=== PATIENT | male | born 1995 | race Caucasian/White ===

== ENCOUNTER 2020-12-22 13:00 | Emergency (ER) | payer BC, SELFPAY ==
--- NOTE | 2020-12-22 13:04 | ED.GENADULT ---
HPI - General Adult General Chief complaint: Dental/Oral Stated complaint: tongue hurts Time Seen by Provider: 12/22/20 13:04 Source: patient Mode of arrival: ambulatory Limitations: no limitations History of Present Illness HPI narrative: 25-year-old male patient presents to the [facility] with complaints of mouth ulcers for the past week. Patient states he has gotten them before due to stress. Patient states he has about 3 or 4 at this time on the tongue and on the sides of the cheeks. Patient states he did have some numbing medication that he was prescribed before but thinks it is not working because it is . Patient states he has also been using some mouthwash. Denies taking any Tylenol or ibuprofen. Related Data Allergies Allergy/AdvReac Type Severity Reaction Status Date / Time No Known Allergies Allergy Unknown Unverified 05/04/16 12:18 Review of Systems Review of Systems: Narrative: CONSTITUTIONAL: Denies fever, chills, or sweats. EYES: Denies visual changes, redness, or discharge. ENT: Denies rhinorrhea, congestion, sore throat, or otalgia. Positive mouth sores x1 week CARDIOVASCULAR: Denies chest pain, palpitations, or edema. RESPIRATORY: Denies cough or dyspnea. GASTROINTESTINAL: Denies abdominal pain, nausea, vomiting, or diarrhea. GENITOURINARY: Denies dysuria or hematuria. SKIN: Denies rash or itching. MUSCULOSKELETAL: Denies back pain, joint pain, or myalgia. NEUROLOGIC: Denies headache, numbness, or weakness. PSYCHIATRIC: Denies anxiety or depression. PMFSH Past Medical History Medical History (Updated 12/22/20 @ 13:25 by ELI Adan) ADHD Epilepsy Pneumothorax Social History Social History Smoking status: Former smoker Gender identity (if verbalized by the patient): Male Comments At the time of my signature I agree with nursing past medical history, surgical, social, and family history. There is no relevant family history pertinent to the presenting complaint. Exam Narrative: Exam Narrative: GENERAL: Well-appearing, well-nourished, and in no acute distress. HEAD: Normocephalic, atraumatic. EYES: PERRLA and EOMI. ENT: Nares clear, no rhinorrhea or epistaxis. Mucous membranes moist. Patient has ulcers noted to the side of the tongue, under the tongue, and on the inner aspects of bilateral cheeks. There is no discharge noted. Patient able talk in clear complete sentences. NECK: Supple. No lymphadenopathy CHEST: Clear to auscultation. No respiratory distress. HEART: Regular rate and rhythm. No murmur heard. Normal peripheral pulses. ABDOMEN: Soft, nontender, nondistended, normal active bowel sounds. EXTREMITIES: Normal range of motion. No edema. SKIN: Warm, dry, no rash. NEURO: No focal deficits. Alert and oriented x3. Course Vital Signs Vital signs: Vital Signs Temperature 36.8 C 12/22/20 13:07 Pulse Rate 73 12/22/20 13:07 Respiratory Rate 16 12/22/20 13:07 Blood Pressure 115/69 12/22/20 13:07 Temperature 36.8 C 12/22/20 13:07 Pulse Rate 73 12/22/20 13:07 Respiratory Rate 16 12/22/20 13:07 Blood Pressure 115/69 12/22/20 13:07 Vital signs reviewed Medical Decision Making Differential Diagnosis Differential Diagnosis: Differential diagnosis: Dental caries, periodontal disease, avulsed tooth, tooth infections, mandibular infection, Jean Marie's angiana, upper tooth infection, dry socket, gingivitis, acute necrotizing ulcerative gingivitis, sialolithiasis. Discussed with patient that these ulcers will take time to heal and typically can be brought on by acid foods, stress or illness. Would definitely recommend patient to avoid acid foods at this time and may clean the area with hydrogen peroxide. I will go ahead and give him some Magic mouthwash to help with the pain he can also take Tylenol and ibuprofen for pain. Patient verbalized understanding denies any other questions or concerns at t
[2020-12-22 13:07] VITALS: BP 115/69; PULSE 73; RESP 16; TEMP 36.8
== END 2020-12-22 13:30 | disposition home or self-care (01) ==
PROVIDERS: Emergency Provider Nurse Practitioner Family; PCP Emergency Medicine
DX: K12.0 Recurrent oral aphthae (principal)
CPT/HCPCS: 99213; G0463

== ENCOUNTER 2021-02-07 13:27 | Emergency (ER) | payer BC, SELFPAY ==
[2021-02-07 13:34] VITALS: BP 114/61; PULSE 84; RESP 16; TEMP 36.3; O2SAT 99
[2021-02-07 13:40] VITALS: BP 114/61; PULSE 84; RESP 16; TEMP 36.3; O2SAT 16
--- NOTE | 2021-02-07 13:41 | ED.URI ---
HPI - URI/Sore Throat General Chief Complaint: Upper Respiratory Infection Stated Complaint: cough Source: patient and RN notes reviewed Mode of arrival: ambulatory Limitations: no limitations History of Present Illness HPI Narrative: 25-year-old presents to the [facility] with complaints of runny nose, sinus congestion. States that he called in sick yesterday to work due to his sinus congestion, cough and a migraine headache. Was told from his job that he needs a work note to return or a letter from a doctor stating that he was evaluated. States his symptoms are a lot better. Had taken medications. Has a history of seasonal allergies but has not taken anything for his allergies. Has a history of seizures, ADHD. States that he is feeling much better today, denies any fevers, shortness of breath, abdominal pain or chest pain Related Data Home Medications Medication Instructions Recorded Confirmed levetiracetam 1,000 mg PO BID 02/07/21 02/07/21 methylphenidate HCl 18 mg PO DAILY 02/07/21 02/07/21 Allergies Allergy/AdvReac Type Severity Reaction Status Date / Time No Known Allergies Allergy Unknown Unverified 05/04/16 12:18 Review of Systems Review of Systems: All systems reviewed & are unremarkable except as noted in HPI and below Constitutional: Constitutional: Reports no additional constitutional complaints, Denies chills, Denies fatigue, Denies fever(s) and Denies weakness Eyes: Eyes: Reports no additional eye complaints, Denies change in vision and Denies photophobia ENT: Reports as per HPI, Denies change in voice, Denies dental pain, Denies vertigo, Denies dizziness, Reports headache(s), Denies hoarseness, Denies lip swelling, Reports nasal congestion and Reports nasal discharge Cardiovascular: Cardiovascular: Reports no additional cardiovascular complaints and Denies chest pain Respiratory: Respiratory: Reports as per HPI, Denies chest congestion, Reports cough, Denies dyspnea and Denies wheezing Gastrointestinal: Gastrointestinal: Reports no additional gastrointestinal complaints, Denies abdominal pain, Denies diarrhea, Denies nausea and Denies vomiting Musculoskeletal: Musculoskeletal: Reports no additional musculoskeletal complaints and Denies back pain Integumentary/Breasts: Skin/Breast: Reports system reviewed and no additional complaints, except as docu and Denies rash Neurologic: Reports system reviewed and no additional complaints, except as documented Psychiatric: Psychiatric: Reports no additional psychiatric complaints PMFSH Past Medical History Medical History ADHD Epilepsy Pneumothorax Social History Social History Smoking status: Former smoker Gender identity (if verbalized by the patient): Male Comments At the time of my signature, I reviewed and agree with the nursing past medical, surgical, social, and family history. There is no relevant family history pertinent to the patient complaint. Exam Const: General: healthy appearing, no acute distress and alert Nutritional Appearance: well nourished and thin Orientation/consciousness: patient oriented x3 Limitations: no limitations HENMT: Head: normal to inspection Ears: hearing grossly normal bilaterally, external ears normal and TM's normal bilaterally General nose exam: Abnormal external nose present, Abnormal mucous membranes and turbinates present boggy; not erythematous and Nasal discharge present clear Face and sinus: normal facial exam, sinuses nontender, no erythema and no edema Mouth: Yes Normal oral and palatal mucosa present and No muffled voice Teeth and gingiva: dentition normal Throat: tonsils normal, uvula midline, normal tonsils and postnasal drainage Eyes: Conjunctivae: conjunctivae normal Pupils: Equal, round and reactive pupils present Neck: Neck: normal visual inspection, no lymphadenopathy and no meningeal signs C
== END 2021-02-07 13:47 | disposition home or self-care (01) ==
PROVIDERS: Emergency Provider Nurse Practitioner; PCP Emergency Medicine
DX: J01.41 Acute recurrent pansinusitis (principal); Z87.891 Personal history of nicotine dependence; G40.909 Epilepsy, unspecified, not intractable, without status epilepticus; F90.9 Attention-deficit hyperactivity disorder, unspecified type
CPT/HCPCS: 99211; G0463

== ENCOUNTER 2021-04-07 10:23 | Emergency (ER) | payer BC, SELFPAY ==
[2021-04-07 10:37] VITALS: BP 119/75; PULSE 67; RESP 18; TEMP 36.8; O2SAT 100
--- NOTE | 2021-04-07 11:03 | ED.UPPEXIN ---
HPI - Extremity Injury (Upper) General Chief Complaint: Extremity Injury, Upper Stated Complaint: R hand and forearm pain Time Seen by Provider: 04/07/21 10:33 Source: patient Mode of arrival: ambulatory Limitations: no limitations History of Present Illness HPI narrative: Patient is a 25 year old male who presents with complaints of right hand pain and tingling x 3 days. He reports going to [employer] three days ago and reports pain has increased since. Patient denies injury. Patient is in IT and types all day. He denies taking over the counter medications for pain. He denies all other complaints at this time. complaint: injury to: right and hand Related Data Home Medications Medication Instructions Recorded Confirmed levetiracetam 1,000 mg PO BID 02/07/21 02/07/21 methylphenidate HCl 18 mg PO DAILY 02/07/21 02/07/21 Allergies Allergy/AdvReac Type Severity Reaction Status Date / Time No Known Allergies Allergy Unknown Unverified 05/04/16 12:18 Review of Systems Review of Systems: CONSTITUTIONAL: Denies fever, chills, or sweats. EYES: Denies visual changes, redness, or discharge. ENT: Denies rhinorrhea, congestion, sore throat, or otalgia. CARDIOVASCULAR: Denies chest pain, palpitations, or edema. RESPIRATORY: Denies cough or dyspnea. GASTROINTESTINAL: Denies abdominal pain, nausea, vomiting, or diarrhea. GENITOURINARY: Denies dysuria or hematuria. SKIN: Denies rash or itching. MUSCULOSKELETAL: Reports right hand pain and tingling NEUROLOGIC: Denies headache, numbness, dizziness, or weakness. PSYCHIATRIC: Denies anxiety or depression. [facility] Past Medical History Medical History ADHD Epilepsy Pneumothorax Social History Social History (Updated 04/07/21 @ 11:05 by ELI Mclaughlin) Smoking status: Former smoker Alcohol intake: current Alcohol use details: Occasional Substance use: never Living arrangements: with family Gender identity (if verbalized by the patient): Male Comments At the time of signature, I have reviewed and agree with nursing past medical, surgical, social, and family history unless otherwise noted. Please see nursing chart for further information. There is no relevant family history pertinent to the presenting complaint. Exam Narrative: GENERAL: Well-appearing, well-nourished, and in no acute distress. HEAD: Normocephalic, atraumatic. EYES: EOMI. No redness or drainage. Conjunctiva are normal. ENT: Mucous membranes pink and moist. CHEST: No respiratory distress. HEART: Regular rate and rhythm. EXTREMITIES: Right upper extremity: Positive Phalen's test, positive Tinel's sign, good capillary refill, distal sensation intact. SKIN: Warm, dry, no rash. NEURO: No focal deficits. Alert and oriented x3. Gait steady. PSYCH: Normal affect. No signs of depression or anxiety. Course Vital Signs Vital signs: Vital Signs Temperature 36.8 C 04/07/21 10:37 Pulse Rate 67 04/07/21 10:37 Respiratory Rate 18 04/07/21 10:37 Blood Pressure 119/75 04/07/21 10:37 Pulse Oximetry 100 04/07/21 10:37 Temperature 36.8 C 04/07/21 10:37 Pulse Rate 67 04/07/21 10:37 Respiratory Rate 18 04/07/21 10:37 Blood Pressure 119/75 04/07/21 10:37 Pulse Oximetry 100 04/07/21 10:37 MDM - Extremity Injury (Upper) MDM Narrative Medical decision making narrative: Discussed with patient symptoms presenting her most likely those of carpal tunnel. Patient will need to follow-up with hand specialist. Discussed taking Tylenol or ibuprofen for pain and over the counter wrist splint in the interim until follow up with a hand specialist. Differential Diagnosis Differential diagnosis: Likely sprain and strain of wrist, fracture of wrist, fracture of hand and other (Carpal tunnel) Critical Care Time Critical Care Time Critical Care Time: No Discharge Plan Discharge Clinical Impression: Hand pain, right
== END 2021-04-07 11:30 | disposition home or self-care (01) ==
PROVIDERS: Emergency Provider Nurse Practitioner; PCP Emergency Medicine
DX: M79.641 Pain in right hand (principal); G40.909 Epilepsy, unspecified, not intractable, without status epilepticus
CPT/HCPCS: 99282

== ENCOUNTER 2021-07-09 09:17 | Outpatient (CLI) | payer BC, SELFPAY ==
--- NOTE | 2021-07-09 11:30 | NEURO_ITS ---
Impression: # Complains of numbness and weakness of hands. # No Carpal Tunnel Syndrome or ulnar neuropathy. # Normal needle/EMG exam. # Considering the age of the patient distal latencies are somewhat prolonged raising the possibility of early neuropathy. # Clinical correlation recommended. Nerve Conduction Studies Anti Sensory Summary Table Stim Site NR Peak (ms) P-T Amp (?V) Site1 Site2 Delta-P (ms) Dist (cm) Dom (m/s) Left Median Anti Sensory (2-3nd Digit) Wrist 3.3 46.1 Wrist 2-3nd Digit 3.3 14.0 42 Wrist 3.1 75.8 Wrist 2-3nd Digit 3.3 14.0 42 Right Median Anti Sensory (2-3nd Digit) Wrist 3.3 77.4 Wrist 2-3nd Digit 3.3 14.0 42 Wrist 3.3 73.2 Wrist 2-3nd Digit 3.3 14.0 42 Left Radial Anti Sensory (Base 1st Digit) Wrist 2.3 31.9 Wrist Base 1st Digit 2.3 0.0 Right Radial Anti Sensory (Base 1st Digit) Wrist 3.0 10.6 Wrist Base 1st Digit 3.0 0.0 Left Ulnar Anti Sensory (5th Digit) Wrist 3.0 58.4 Wrist 5th Digit 3.0 14.0 47 Right Ulnar Anti Sensory (5th Digit) Wrist 2.9 83.3 Wrist 5th Digit 2.9 14.0 48 Motor Summary Table Stim Site NR Onset (ms) O-P Amp (mV) Site1 Site2 Delta-0 (ms) Dist (cm) Dom (m/s) Left Median Motor (Abd Poll Brev) Wrist 3.0 3.0 Elbow Wrist 5.3 31.0 58 Elbow 8.3 2.8 Right Median Motor (Abd Poll Brev) Wrist 3.0 5.8 Elbow Wrist 5.4 31.0 57 Elbow 8.4 7.6 Left Ulnar Motor (Abd Dig Minimi) Wrist 3.0 6.9 A Elbow Wrist 5.6 32.0 57 A Elbow 8.6 5.9 Right Ulnar Motor (Abd Dig Minimi) Wrist 3.0 6.3 A Elbow Wrist 5.3 31.0 58 A Elbow 8.3 5.7 F Wave Studies NR F-Lat (ms) L-R F-Lat (ms) Left Median (Mrkrs) (Abd Poll Brev) 29.69 0.26 Right Median (Mrkrs) (Abd Poll Brev) 29.95 0.26 Left Ulnar (Mrkrs) (Abd Dig Min) 29.44 0.47 Right Ulnar (Mrkrs) (Abd Dig Min) 29.90 0.47 EMG Side Muscle Nerve Root Ins Act Fibs Amp Dur Recrt Comment Right 1stDorInt Ulnar C8-T1 Nml Nml Nml Nml Nml Right Ext Indicis Radial (Post Int) C7-8 Nml Nml Nml Nml Nml Right Ext Digitorum Radial (Post Int) C7-8 Nml Nml Nml Nml Nml Right BrachioRad Radial C5-6 Nml Nml Nml Nml Nml Right PronatorTeres Median C6-7 Nml Nml Nml Nml Nml Right Abd Poll Brev Median C8-T1 Nml Nml Nml Nml Nml Left 1stDorInt Ulnar C8-T1 Nml Nml Nml Nml Nml Left Ext Indicis Radial (Post Int) C7-8 Nml Nml Nml Nml Nml Left Ext Digitorum Radial (Post Int) C7-8 Nml Nml Nml Nml Nml Left BrachioRad Radial C5-6 Nml Nml Nml Nml Nml Left PronatorTeres Median C6-7 Nml Nml Nml Nml Nml Left Abd Poll Brev Median C8-T1 Nml Nml Nml Nml Nml MTDD
== END 2021-07-09 09:18 | disposition home or self-care (01) ==
LOC: ANHNEURO 09:17
PROVIDERS: PCP Emergency Medicine; Visit Provider Plastic Surgery
DX: R20.2 Paresthesia of skin (principal)
CPT/HCPCS: 95886; 95911

== ENCOUNTER 2021-11-11 15:17 | Emergency (ER) | payer BC, SELFPAY ==
[2021-11-11 15:28] VITALS: BP 119/65; PULSE 76; RESP 16; TEMP 36.9; O2SAT 99
--- NOTE | 2021-11-11 15:41 | ED.URI ---
HPI - URI/Sore Throat General Chief Complaint: Upper Respiratory Infection Stated Complaint: uri Time Seen by Provider: 11/11/21 15:42 Source: patient Mode of arrival: ambulatory Limitations: no limitations History of Present Illness HPI Narrative: 26 yo M presents with c/o fatigue, nasal congestion, headache, dry cough for 3 days. Not taking any medications to treat symptoms. Reports that his daughter now has cough. Wants to make sure he doesn't give her covid. All systems reviewed and negative except as noted above. Related Data Home Medications Medication Instructions Recorded Confirmed levetiracetam 1,000 mg PO BID 02/07/21 02/07/21 methylphenidate HCl 18 mg PO DAILY 02/07/21 02/07/21 Allergies Allergy/AdvReac Type Severity Reaction Status Date / Time No Known Allergies Allergy Unknown Unverified 05/04/16 12:18 Review of Systems Review of Systems: CONSTITUTIONAL: Denies fever, chills, or sweats. Reports fatigue. EYES: Denies visual changes, redness, or discharge. ENT: Reports rhinorrhea, congestion, sore throat. Denies otalgia. CARDIOVASCULAR: Denies chest pain, palpitations, or edema. RESPIRATORY: Reports cough. Denies dyspnea. GASTROINTESTINAL: Denies abdominal pain, nausea, vomiting, or diarrhea. GENITOURINARY: Denies dysuria or hematuria. SKIN: Denies rash or itching. MUSCULOSKELETAL: Denies back pain, joint pain, or myalgia. NEUROLOGIC: Denies headache, numbness, or weakness. PSYCHIATRIC: Denies anxiety or depression. All other systems reviewed are negative, except as documented in HPI. [facility] Past Medical History Medical History ADHD Epilepsy Pneumothorax Social History Social History (Updated 04/07/21 @ 11:05 by Ernestina Corral, ELI) Smoking status: Former smoker Alcohol intake: current Alcohol use details: Occasional Substance use: never Gender identity (if verbalized by the patient): Male Comments At time of signature, agree with nursing past medical, surgical, social and family history. There is no relevant family history pertinent to the presenting complaint. Exam Narrative: GENERAL: This is a well-nourished, well-developed patient, in no apparent distress. HEAD: normocephalic, atraumatic. EYES: PERRL. Sclera clear/white. Vision is grossly intact. EARS: External ears normal, auditory canals clear and without drainage, TMs normal without perforation. Hearing grossly intact. NOSE: External nose normal with clear nasal drainage., nares without redness. THROAT: Mucous membranes moist, posterior pharynx clear. NECK: Neck supple, non-tender without lymphadenopathy, masses or thyromegaly. CARDIOVASCULAR: Regular rate and rhythm without murmurs, gallops, or rubs. RESPIRATORY: Clear to auscultation. Breath sounds equal bilaterally. No wheezes, rales, or rhonchi. GASTROINTESTINAL: Abdomen soft, non-tender, nondistended. Bowel sounds are active. No hepato-splenomegaly, or palpable masses. No guarding. SKIN: warm, Dry, intact with no suspicious lesions or rash, good texture and turgor. NEURO: awake, alert, and oriented to person, place and time. There were no obvious focal neurologic abnormalities. EXTREMITIES: No joint tenderness, effusion, or edema noted. No calf tenderness. Negative Homans sign bilaterally. BACK: Nontender without deformity. No CVA tenderness. Course Course Level of Care: Express Care Visit Vital Signs Vital signs: Vital Signs Temperature 36.9 C 11/11/21 15:28 Pulse Rate 76 11/11/21 15:28 Respiratory Rate 16 11/11/21 15:28 Blood Pressure 119/65 11/11/21 15:28 Pulse Oximetry 99 11/11/21 15:28 Temperature 36.9 C 11/11/21 15:28 Pulse Rate 76 11/11/21 15:28 Respiratory Rate 16 11/11/21 15:28 Blood Pressure 119/65 11/11/21 15:28 Pulse Oximetry 99 11/11/21 15:28 Reviewed MDM - URI/Sore Throat MDM Narrative Medical decision making narrative: Patient is aware of diagn
== END 2021-11-11 16:21 | disposition home or self-care (01) ==
PROVIDERS: Emergency Provider Nurse Practitioner Family
DX: J06.9 Acute upper respiratory infection, unspecified (principal); Z20.822 Contact with and (suspected) exposure to COVID-19; F90.9 Attention-deficit hyperactivity disorder, unspecified type; G40.909 Epilepsy, unspecified, not intractable, without status epilepticus
CPT/HCPCS: 87426; 87804; 99213; C9803; G0463

== ENCOUNTER 2021-12-11 09:10 | Emergency (ER) | payer BC, SELFPAY ==
[2021-12-11 09:20] VITALS: BP 116/84; PULSE 71; RESP 16; TEMP 36.9; O2SAT 100
--- NOTE | 2021-12-11 09:20 | ED.NAVMDI ---
HPI - Nausea/Vomiting/Diarrhea General Chief complaint: Nausea/Vomiting/Diarrhea Stated complaint: Throwing Up Time Seen by Provider: 12/11/21 09:20 Source: patient Mode of arrival: ambulatory Limitations: no limitations History of Present Illness HPI Narrative: 26-year-old male presents with complaint of nausea, vomiting, fatigue, headaches since last evening that started around 10 PM. Reports that he has been able to keep down Sprite and water but cannot eat any solid food. Patient thinks that he may have food poisoning. Denies fever chills. All systems reviewed and negative except as noted above. Related Data Home Medications Medication Instructions Recorded Confirmed levetiracetam 1,000 mg PO BID 02/07/21 11/11/21 methylphenidate HCl 18 mg PO DAILY 02/07/21 11/11/21 Allergies Allergy/AdvReac Type Severity Reaction Status Date / Time No Known Allergies Allergy Unknown Unverified 12/11/21 09:25 Review of Systems Review of Systems: CONSTITUTIONAL: Denies fever, chills, or sweats. EYES: Denies visual changes, redness, or discharge. ENT: Denies rhinorrhea, congestion, sore throat, or otalgia. CARDIOVASCULAR: Denies chest pain, palpitations, or edema. RESPIRATORY: Denies cough or dyspnea. GASTROINTESTINAL: Reports abdominal pain, nausea, vomiting. Denies diarrhea. GENITOURINARY: Denies dysuria or hematuria. SKIN: Denies rash or itching. MUSCULOSKELETAL: Denies back pain, joint pain, or myalgia. NEUROLOGIC: Denies headache, numbness, or weakness. PSYCHIATRIC: Denies anxiety or depression. All other systems reviewed are negative, except as documented in HPI. [facility] Past Medical History Medical History ADHD Epilepsy Pneumothorax Social History Social History (Updated 04/07/21 @ 11:05 by Ernestina Corral, ELI) Smoking status: Former smoker Alcohol intake: current Alcohol use details: Occasional Substance use: never Gender identity (if verbalized by the patient): Male Comments At time of signature, agree with nursing past medical, surgical, social and family history. There is no relevant family history pertinent to the presenting complaint. Exam Narrative: GENERAL: This is a well-nourished, well-developed patient. Patient is ill-appearing but in no distress. HEAD: normocephalic, atraumatic. EYES: PERRL. Sclera clear/white. Vision is grossly intact. EARS: External ears normal, auditory canals clear and without drainage, TMs normal without perforation. Hearing grossly intact. NOSE: External nose normal with no obvious nasal discharge, nares without redness, no rhinorrhea. THROAT: Mucous membranes moist, posterior pharynx clear. NECK: Neck supple, non-tender without lymphadenopathy, masses or thyromegaly. CARDIOVASCULAR: Regular rate and rhythm without murmurs, gallops, or rubs. RESPIRATORY: Clear to auscultation. Breath sounds equal bilaterally. No wheezes, rales, or rhonchi. GASTROINTESTINAL: Abdomen soft, non-tender, nondistended. Bowel sounds are active. No hepato-splenomegaly, or palpable masses. No guarding. SKIN: warm, Dry, intact with no suspicious lesions or rash, good texture and turgor. NEURO: awake, alert, and oriented to person, place and time. There were no obvious focal neurologic abnormalities. EXTREMITIES: Normal range of motion to all extremities. Course Course Level of Care: Express Care Visit Vital Signs Vital signs: Reviewed MDM - Nausea/Vomiting/Diarrhea MDM Narrative Medical decision making narrative: No abdominal tenderness on palpation. No vomiting while at urgent care. Patient is aware of diagnosis, understands and agrees to treatment plan. Anticipatory guidance given. Patient agrees to follow-up as directed and is aware of reasons to seek care at the emergency department. Portions of this record may have been created with voice recognition software Differential Diagnosis Differential diagnosis: Likely fo
[2021-12-11] MEDS: ONDANSETRON HCL ODT 4 MG TABLET SUBLINGUAL (09:29)
== END 2021-12-11 09:48 | disposition home or self-care (01) ==
PROVIDERS: Emergency Provider Nurse Practitioner Family; PCP Emergency Medicine
DX: A08.4 Viral intestinal infection, unspecified (principal); Z87.891 Personal history of nicotine dependence; G40.909 Epilepsy, unspecified, not intractable, without status epilepticus; F90.9 Attention-deficit hyperactivity disorder, unspecified type
CPT/HCPCS: 99213; A9270; G0463

== ENCOUNTER 2022-10-04 11:10 | Emergency (ER) | payer OTHER, SELFPAY ==
--- NOTE | 2022-10-04 11:15 | ED.URI ---
HPI - URI/Sore Throat General Chief Complaint: Upper Respiratory Infection Stated Complaint: l side head pressure/dizziness when standing Time Seen by Provider: 10/04/22 11:21 Source: patient, RN notes reviewed and old records reviewed Mode of arrival: ambulatory Limitations: no limitations History of Present Illness HPI Narrative: 27-year-old male presents to the [facility] with complaints pressure behind his left eye, left ear. Intermittent dizziness. Denies any fevers. Also reports intermittent knee pain without any trauma. No swelling or bruising noted Denies any weakness. Normal gait. No facial droop noted. Facial symmetry noted. Symptoms started yesterday morning Related Data Home Medications Medication Instructions Recorded Confirmed levetiracetam 500 mg tablet 1,000 mg PO BID 02/07/21 10/04/22 methylphenidate HCl 18 mg 18 mg PO DAILY 02/07/21 10/04/22 tablet,extended release 24 hr Allergies Allergy/AdvReac Type Severity Reaction Status Date / Time No Known Allergies Allergy Unknown Verified 10/04/22 11:13 Review of Systems Review of Systems: All systems reviewed & are unremarkable except as noted in HPI and below Constitutional: Constitutional: Reports no additional constitutional complaints Eyes: Eyes: Reports as per HPI ENT: Reports as per HPI Cardiovascular: Cardiovascular: Reports no additional cardiovascular complaints, Denies chest pain and Denies dyspnea Respiratory: Respiratory: Reports no additional respiratory complaints, Denies chest congestion, Denies cough and Denies dyspnea Gastrointestinal: Gastrointestinal: Reports no additional gastrointestinal complaints, Denies abdominal pain, Denies nausea and Denies vomiting Musculoskeletal: Musculoskeletal: Reports no additional musculoskeletal complaints Integumentary/Breasts: Skin/Breast: Reports system reviewed and no additional complaints, except as docu Neurologic: Reports system reviewed and no additional complaints, except as documented Psychiatric: Psychiatric: Reports no additional psychiatric complaints Allergic/Immunologic: Allergic/Immunologic: Reports no additional allergic/immunologic complaints PMFSH Past Medical History Medical History ADHD Epilepsy Pneumothorax Social History Social History Smoking status: Former smoker Alcohol intake: current Alcohol use details: Occasional Substance use: never Living arrangements: with family Occupation/Education: student Gender identity (if verbalized by the patient): Male Comments At the time of my signature, I reviewed and agree with the nursing past medical, surgical, social, and family history. There is no relevant family history pertinent to the patient complaint. Exam Const: General: cooperative, healthy appearing, comfortable, no acute distress, well developed, alert and well nourished Nutritional Appearance: well nourished Orientation/consciousness: patient oriented x3 Limitations: no limitations HENMT: Head: normal to inspection Ears: hearing grossly normal bilaterally, external ears normal, TM normal on the right, EAC's normal and TM abnormal bulging on the left and wth effusion serous on the left; not erythematous and with no loss of landmarks Face/Nose/Sinus: Normal external nose present, Normal nares present, Normal nasal mucous membranes and turbinates present and normal facial exam Face and sinus: normal facial exam Mouth: Yes Normal oral and palatal mucosa present, Yes lip normal and Yes moist mucous membranes Throat: posterior oropharynx normal and uvula midline Eyes: General: appearance normal, both eyes and all related structures Alignment and Position: alignment normal Periorbital: periorbital findings normal Conjunctivae: conjunctivae normal Pupils: Equal, round and reactive pupils present EOM: EOMs intact bilaterally Direct
[2022-10-04 11:21] VITALS: BP 125/75; PULSE 62; RESP 16; TEMP 36.6; O2SAT 100
== END 2022-10-04 11:37 | disposition home or self-care (01) ==
PROVIDERS: Emergency Provider Nurse Practitioner; PCP Emergency Medicine
DX: H69.92 Unspecified Eustachian tube disorder, left ear (principal); H65.02 Acute serous otitis media, left ear; Z87.891 Personal history of nicotine dependence; G40.909 Epilepsy, unspecified, not intractable, without status epilepticus; F90.9 Attention-deficit hyperactivity disorder, unspecified type
CPT/HCPCS: 99213; G0463

== ENCOUNTER 2022-12-08 12:09 | Emergency (ER) | payer OTHER, SELFPAY ==
[2022-12-08 12:17] VITALS: BP 108/70; PULSE 65; RESP 16; TEMP 36.8; O2SAT 99
--- NOTE | 2022-12-08 12:26 | ED.SKABFB ---
HPI - Skin/Abscess/Foreign Bdy General Chief complaint: Skin/Abscess/Foreign Body Stated complaint: carrion Time Seen by Provider: 12/08/22 12:20 Source: patient Mode of arrival: ambulatory Limitations: no limitations History of Present Illness HPI narrative: Siddharth is a 27-year-old male patient presenting to the clinic today with complaints of a headache and rash to the right side of his head. He reports that this began on Tuesday. States he is having sharp shooting pain on the right side of his head. History of shingles when he was 17. Related Data Home Medications Medication Instructions Recorded Confirmed levetiracetam 500 mg tablet 1,000 mg PO BID 02/07/21 12/08/22 methylphenidate HCl 18 mg 18 mg PO DAILY 02/07/21 12/08/22 tablet,extended release 24 hr Allergies Allergy/AdvReac Type Severity Reaction Status Date / Time No Known Allergies Allergy Unknown Verified 10/04/22 11:13 Review of Systems Review of Systems: Pertinent positives per HPI. Patient denies any fever, chills, visual changes, dizziness, cough, runny nose, sore throat, shortness of breath, chest pain, palpitations, nausea, vomiting, diarrhea, constipation, abdominal pain, or any urinary issues. [facility] Past Medical History Medical History ADHD Epilepsy Pneumothorax Social History Social History Smoking status: Former smoker Alcohol intake: current Alcohol use details: Occasional Substance use: never Living arrangements: with family Occupation/Education: student Gender identity (if verbalized by the patient): Male Comments At the time of my signature, I reviewed and agree with the nursing past medical, surgical, social, and family history. There is no relevant family history pertinent to the patient complaint. Exam Narrative: General: Well-developed, well nourished, in no apparent distress Head: Normocephalic, atraumatic. Cardio: Regular rate and rhythm, s1 and s2 normal, no murmur appreciated. Resp: Clear to auscultation bilaterally, no rhonchi, rales, wheezing or rubs. Integumentary: [place], warm, and dry, to welt up red, raised erythemic base rash with vesicular lesions to right mosque Course Course Emergency Course: Portions of this record may have been created with voice recognition software. Level of Care: Express Care Visit Vital Signs Vital signs: Vital Signs Temperature 36.8 C 12/08/22 12:17 Pulse Rate 65 12/08/22 12:17 Respiratory Rate 16 12/08/22 12:17 Blood Pressure 108/70 12/08/22 12:17 Pulse Oximetry 99 12/08/22 12:17 Oxygen Delivery Room Air 12/08/22 12:17 Temperature 36.8 C 12/08/22 12:17 Pulse Rate 65 12/08/22 12:17 Respiratory Rate 16 12/08/22 12:17 Blood Pressure 108/70 12/08/22 12:17 Pulse Oximetry 99 12/08/22 12:17 Oxygen Delivery Room Air 12/08/22 12:17 Vital signs reviewed MDM - Skin/Abscess/Foreign Bdy MDM Narrative Medical decision making narrative: At the time of visit patient is resting comfortably on exam table. I suspect patient has shingles. Prescription for acyclovir and lidocaine cream was sent to pharmacy. Supportive measures were discussed with the patient he voiced understanding discharge instructions agrees to treatment plan. Differential Diagnosis Differential diagnosis: Likely abscess of skin or subcutaneous tissue, herpes zoster, cellulitis, eczema and contact dermatitis Discharge Plan Discharge Clinical Impression: Herpes zoster Qualifiers: Herpes zoster complications: without complications Qualified Code(s): B02.9 - Zoster without complications Patient Disposition: Home, Self-Care Condition: Stable Instructions: Antibiotic Form, Shingles (ED) Additional Instructions: Keep rash covered if it is blistering/draining Avoid children under the age of 1 who have not had their chickenpox vaccin
== END 2022-12-08 12:36 | disposition home or self-care (01) ==
PROVIDERS: Emergency Provider Nurse Practitioner Family; PCP Emergency Medicine
DX: B02.9 Zoster without complications (principal); Z87.891 Personal history of nicotine dependence; F90.9 Attention-deficit hyperactivity disorder, unspecified type; G40.909 Epilepsy, unspecified, not intractable, without status epilepticus
CPT/HCPCS: 99213; G0463

== ENCOUNTER 2023-06-05 11:55 | Emergency (ER) | payer OTHER, SELFPAY ==
--- NOTE | ~2023-06-05 | CT_ITS ---
EXAMINATION: CT abdomen pelvis w con INDICATION: Right lower quadrant pain TECHNIQUE: Computed tomographic images of the abdomen and pelvis were obtained after the administrati on of 100 cc of Omnipaque 350 intravenous contrast. The dose-length product (DLP) was 238.90 mGy-cm. Automated exposure control and iterative reconstruction technique were employed. COMPARISON: None available FINDINGS: The lung bases are clear. The heart size is normal. The liver, spleen, pancreas, gallbladde r, and adrenal glands are normal. The kidneys are unremarkable. No pathologically enlarged abdominal or pelvic lymph nodes are identified. No free intraperitoneal gas or evidence of bowel obstruction. T he appendix is normal. A moderate volume of colonic stool is present. IMPRESSION: 1. No CT correlate for the patient's symptoms. Reviewed, dictated and finalized at location A.
[2023-06-05 12:04] VITALS: BP 113/74; PULSE 95; RESP 16; TEMP 36.8; O2SAT 98
--- NOTE | 2023-06-05 12:19 | ED.ABDPAIN ---
HPI - Abdominal Pain General Chief Complaint: Abdominal Pain Stated Complaint: Right Flank Pain Time Seen by Provider: 06/05/23 12:14 Source: patient Mode of arrival: ambulatory Limitations: no limitations History of Present Illness HPI narrative: 27 years old white male presented to the ED by private car complaining of right lower quadrant pain for the last 7 days, worse with certain movement and standing and walking. Patient depends on lifting, pushing and bending. Patient denies any fever, chills, nausea, vomiting, constipation, diarrhea, urinary symptoms or radiation of pain. History of seizure. Does not smoke or drink or uses drugs. Related Data Home Medications Medication Instructions Recorded Confirmed levetiracetam 500 mg tablet 1,000 mg PO BID 02/07/21 12/08/22 methylphenidate HCl 18 mg 18 mg PO DAILY 02/07/21 12/08/22 tablet,extended release 24 hr Allergies Allergy/AdvReac Type Severity Reaction Status Date / Time No Known Allergies Allergy Unknown Verified 10/04/22 11:13 Review of Systems Review of Systems: All systems reviewed & are unremarkable except as noted in HPI and below PMFSH Past Medical History Medical History ADHD Epilepsy Pneumothorax Social History Social History Smoking status: Former smoker Alcohol intake: current Alcohol use details: Occasional Substance use: never Living arrangements: with family Occupation/Education: student Gender identity (if verbalized by the patient): Male Exam Narrative: General appearance: Well-developed, well-nourished Skin: Normal color Head: Normocephalic, nontraumatic Eyes: Clear conjunctiva ENT: Oropharynx normal, ears normal, nose normal Neck: Supple, nontender Chest and respiratory: Airway patent, no respiratory distress, no accessory muscle use Heart: Regular rate/rhythm Abdomen: Soft, right lower quadrant tenderness, no rebound or guarding, no bulging or mass, no organomegaly, quiet bowel sounds Vascular: Normal peripheral pulses, normal capillary refill. Musculoskeletal: Normal range of motion, nontender back Neurologic: Alert and oriented ?3, COMPOSITE TECHNICIAN is normal as tested, no gross motor deficit Course Vital Signs Vital signs: Vital Signs Temperature 36.8 C 06/05/23 12:04 Pulse Rate 95 06/05/23 12:04 Respiratory Rate 16 06/05/23 12:04 Blood Pressure 113/74 06/05/23 12:04 Pulse Oximetry 98 06/05/23 12:04 Temperature 36.8 C 06/05/23 12:04 Pulse Rate 95 06/05/23 12:04 Respiratory Rate 16 06/05/23 12:04 Blood Pressure 113/74 06/05/23 12:04 Pulse Oximetry 98 06/05/23 12:04 MDM - Abdominal Pain MDM Narrative Medical decision making narrative: Patient presents with right lower quadrant pain, 7 days ago, Physical exam showed mild diffuse tenderness right lower quadrant, Differential diagnosis include abdominal wall pain, appendicitis, urinary tract infection, diverticulitis, hernia. Work-up today showed unremarkable blood work-up, CT scan of the abdomen and pelvis with IV contrast showed no acute abnormalities. Urine is clean. Abdominal wall muscular strain/sprain is my concern. In the ED patient received 1 L of normal saline IV, Discharged on ibuprofen/Tylenol. the pt was discharged to home.the pt,s condition upon discharge was fair,education was provided to the pt in reference to the final impression,discharge study results,treatment,prognosis and need for follow up . Differential Diagnosis Differential diagnosis: Likely abdominal pain, acute appendicitis, calculus of kidney, constipation and divert
[2023-06-05] MEDS: SODIUM CHLORIDE 0.9% IV 1,000 ML 999 ML IV CONT (12:27)
[2023-06-05 12:36] LABS: Basophils Percent Auto 0.3 % (0.2-1.2); Eosinophils Absolute Auto 0.1 K/mm3 (0-0.3); Eosinophils Percent Auto 0.9 % (0-4.4); Hematocrit 48.2 % (42.0-52.0); Hemoglobin 15.8 g/dL (14.0-18.0); Immature Granulocyte Absolute 0.02 K/mm3 (0.00-0.031); Immature Granulocyte Percent A 0.2 % (0-0.5); Lymphocytes Absolute Auto 1.98 K/mm3 (0.9-3.2); Lymphocytes Percent Auto 21.2 % (18.3-44.2); Mean Corpuscular HGB Conc 32.8 g/dl (32-36); Mean Corpuscular Hemoglobin 30.2 pg (26-34); Mean Platelet Volume 10.6 fl (7.4-10.4); Monocytes Absolute Auto 0.5 K/mm3 (0.1-0.6); Monocytes Percent Auto 4.8 % (2.6-8.5); Neutrophils Absolute Auto 6.8 K/mm3 (1.3-6.7); Neutrophils Percent Auto 72.6 % (45.5-73.1); Platelet Count Result 223 k/mm3 (150-375); Red Blood Count 5.24 M/mm3 (4.6-6.20); Red Cell Distribution Width 12.1 % (11.5-14.5); White Blood Count 9.3 K/mm3 (4.5-10.0)
[2023-06-05 12:47] LABS: Alanine Aminotransferase 27 U/L (6-50); Albumin Level 4.7 g/dL (3.5-5.1); Alkaline Phosphatase 63 U/L (38-126); Anion Gap 9 mmol/L (8-16); Aspartate Amino Transferase 26 U/L (17-59); Bilirubin,Total 0.7 mg/dL (0.2-1.3); Blood Urea Nitrogen 14 mg/dL (9-20); Calcium 9.4 mg/dL (8.4-10.2); Carbon Dioxide 29 mmol/L (22-30); Chloride 103 mmol/L (98-107); Estimated CRCL calculation 89 ml/min; Estimated Glomerular Filt Rate > 60; Glucose 110 mg/dL (65-110); Lipase 135 U/L (23-300); Potassium 3.6 mmol/L (3.4-5.0); Sodium 141 mmol/L (137-145)
[2023-06-05 13:28] LABS: Appearance Urine Clear (Clear); Bilirubin Urine Negative (Negative); Blood Urine Negative (Negative); Color Urine Yellow (Yellow); Glucose Urine UA Negative (Negative); Ketones Urine Negative (Negative); Leukocyte Esterase Ur Negative LEU/UL (Negative); Nitrate Urine Negative (Negative); Protein Urine Negative (Negative); Specific Grav Ur 1.032 (1.001-1.035)
[2023-06-05 13:34] LABS: Add Urine Microscopic? NO
[2023-06-05 14:37] VITALS: BP 118/75; PULSE 70; RESP 16; O2SAT 99
== END 2023-06-05 14:38 | disposition home or self-care (01) ==
PROVIDERS: Emergency Provider Emergency Medicine; PCP Emergency Medicine
DX: R10.31 Right lower quadrant pain (principal); G40.909 Epilepsy, unspecified, not intractable, without status epilepticus; F90.9 Attention-deficit hyperactivity disorder, unspecified type; Z87.891 Personal history of nicotine dependence
CPT/HCPCS: 36415; 74177; 80053; 81003; 83690; 85025; 95864; 96360; 99284; J7030; Q9967

== ENCOUNTER 2023-08-15 17:26 | Emergency (ER) | payer OTHER, SELFPAY ==
--- NOTE | 2023-08-15 17:39 | ED.URI ---
HPI - URI/Sore Throat General Chief Complaint: Upper Respiratory Infection Stated Complaint: chills,stomach pain,cough Time Seen by Provider: 08/15/23 18:23 Source: patient and RN notes reviewed Mode of arrival: ambulatory Limitations: no limitations History of Present Illness HPI Narrative: 28-year-old male presents with concern for cough, chills, stomach ache. Reports symptoms started a couple days ago and have gotten better. Reports he missed work. He still has some lingering cough. Taken any medications for his symptoms. Denies fever, aches, chills MD elicited complaint: cough Related Data Home Medications Medication Instructions Recorded Confirmed levetiracetam 500 mg tablet 1,000 mg PO BID 02/07/21 08/15/23 Allergies Allergy/AdvReac Type Severity Reaction Status Date / Time No Known Allergies Allergy Unknown Verified 08/15/23 17:45 Review of Systems Review of Systems: CONSTITUTIONAL: Denies malaise, sweats, or fever. Reports chills EYES: Denies visual changes, redness, or discharge. ENT: Denies rhinorrhea, congestion, sinus pain, otalgia and sore throat. CARDIOVASCULAR: Denies chest pain, palpitations, or edema. RESPIRATORY: Reports cough. Denies dyspnea. GASTROINTESTINAL: Denies abdominal pain, nausea, vomiting, diarrhea SKIN: Denies rash or itching. MUSCULOSKELETAL: Denies myalgia. NEUROLOGIC: Denies headache. All systems reviewed & are unremarkable except as noted in HPI and below PMFSH Past Medical History Medical History ADHD Epilepsy Pneumothorax Social History Social History Smoking status: Former smoker Alcohol intake: current Alcohol use details: Occasional Substance use: never Living arrangements: with family Occupation/Education: student Gender identity (if verbalized by the patient): Male Comments At time of signature, agree with nursing past medical, surgical, social and family history. There is no relevant family history pertinent to the presenting complaint Exam Narrative: GENERAL: Well-appearing, well-nourished, and in no acute distress. HEAD: Normocephalic EYES: PERRLA, conjunctivae clear ENT: Nares clear. Mucous membranes moist. TM pearly frank with sharp light reflex bilaterally; no tragal tenderness. Oropharynx not erythematous without lesions. Tonsils not enlarged and without exudate, no drooling, no hoarseness, no trismus, uvula midline. NECK: Supple. No lymphadenopathy CHEST: Clear to auscultation, breath sounds equal. No wheezing, rhonchi, rales, or stridor. No respiratory distress, speaks in full sentences. ABD: Nontender, flat, normoactive bowel sounds HEART: Regular rate and rhythm. No murmur heard. SKIN: Warm, dry, no rash. NEURO: Alert and oriented x3. PSYCH: Normal mood and affect Course Course Emergency Course: Patient is aware of diagnosis, understands and agrees to treatment plan. Anticipatory guidance given. Patient agrees to follow-up as directed and is aware of reasons to seek care at the emergency department. Portions of this record may have been created with voice recognition software Level of Care: Express Care Visit Vital Signs Vital signs: Vital Signs Temperature 98.6 F 08/15/23 17:41 Pulse Rate 64 08/15/23 17:41 Respiratory Rate 16 08/15/23 17:41 Blood Pressure 128/71 08/15/23 17:41 Pulse Oximetry 99 08/15/23 17:41 Oxygen Delivery Room Air 08/15/23 17:41 Temperature 98.6 F 08/15/23 17:41 Pulse Rate 64 08/15/23 17:41 Respiratory Rate 16 08/15/23 17:41 Blood Pressure 128/71 08/15/23 17:41 Pulse Oximetry 99 08/15/23 17:41 Oxygen Delivery Room Air 08/15/23 17:41 Reviewed. MDM - URI/Sore Throat MDM Narrative Medical decision making narrative: Differential diagnosis considered: [place] virus, strep pharyngitis, allergic rhinitis, upper respiratory tract infection, sinus
[2023-08-15 17:41] VITALS: BP 128/71; PULSE 64; RESP 16; TEMP 37; O2SAT 99
== END 2023-08-15 18:41 | disposition home or self-care (01) ==
PROVIDERS: Emergency Provider Nurse Practitioner; PCP Emergency Medicine
DX: J06.9 Acute upper respiratory infection, unspecified (principal); G40.909 Epilepsy, unspecified, not intractable, without status epilepticus; Z87.891 Personal history of nicotine dependence
CPT/HCPCS: 99213; G0463

== ENCOUNTER 2024-03-23 10:55 | Emergency (ER) | payer OTHER, SELFPAY ==
[2024-03-23 11:20] VITALS: BP 105/78; PULSE 71; RESP 18; TEMP 37.2
--- NOTE | 2024-03-23 12:28 | ED.GENADULT ---
HPI - General Adult General Chief complaint: Skin/Abscess/Foreign Body Stated complaint: Insect Bite Left Hand/Right Arm Source: patient Mode of arrival: ambulatory Limitations: no limitations History of Present Illness HPI narrative: Patient presents for evaluation of swelling and redness in the left hand since Tuesday after experiencing a wasp sting. No fever, chills, nausea, vomiting, discharge from the area. He is ambidextrous. 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 He has not been taking any medications to assist with the symptoms. Related Data Home Medications Medication Instructions Recorded Confirmed levetiracetam 500 mg tablet 1,000 mg PO BID 02/07/21 03/23/24 Allergies Allergy/AdvReac Type Severity Reaction Status Date / Time No Known Allergies Allergy Unknown Verified 03/23/24 10:58 Review of Systems Review of Systems: CONSTITUTIONAL: Denies fever, chills, or sweats. EYES: Denies visual changes, redness, or discharge. ENT: Denies rhinorrhea, congestion, sore throat, or otalgia. CARDIOVASCULAR: Denies chest pain, palpitations, or edema. RESPIRATORY: Denies cough or dyspnea. GASTROINTESTINAL: Denies abdominal pain, nausea, vomiting, or diarrhea. GENITOURINARY: Denies dysuria or hematuria. SKIN: Reports redness in the left hand MUSCULOSKELETAL: Reports swelling in the left hand. Denies back pain, joint pain, or myalgia. NEUROLOGIC: Denies headache, numbness, dizziness, or weakness. PSYCHIATRIC: Denies anxiety or depression. [facility] Past Medical History Medical History ADHD Epilepsy Pneumothorax Surgical History Surgical History Surgical history unknown Family History Family History Mother Family history non-contributory Social History Social History Smoking status: Former smoker Alcohol intake: current Alcohol use details: Occasional Substance use: never Living arrangements: with family Occupation/Education: student Gender identity (if verbalized by the patient): Male Exam Narrative: GENERAL: Well-appearing, well-nourished, and in no acute distress. HEAD: Normocephalic, atraumatic. EYES: PERRLA and EOMI. ENT: Nares clear, no rhinorrhea or epistaxis. Mucous membranes moist. Oropharynx without tonsillar hypertrophy exudate or other lesions. Bilateral TMs pearly frank nonbulging NECK: Supple. No adenopathy or masses. No carotid bruits or JVD CHEST: Clear to auscultation. No respiratory distress. No wheezes rales or rhonchi HEART: Regular rate and rhythm. No murmur heard. Normal peripheral pulses. ABDOMEN: Soft, nontender, nondistended, normal active bowel sounds. EXTREMITIES: Normal range of motion. Left hand has 1+ pitting edema SKIN: there is erythema to the dorsal aspect of the left hand. Warm, dry, no rash. NEURO: No focal deficits. Alert and oriented x3. PSYCH: Normal mood and affect. Course Course Emergency Course: This is a 28-year-old male who presented for evaluation of swelling and redness in left hand after a wasp sting. this appears to be an allergic response but he could have a component of cellulitis. Discharge with Medrol Dosepak and cephalexin. Increase hydration. [id number] agents for symptom management. Follow up with primary provider. Go to the ER for worsening symptoms. Patient in agreement with plan of care Level of Care: Express Care Visit Vital Signs Vital signs: Vital Signs Temperature 37.2 C 03/23/24 11:20 Pulse Rate 71 03/23/24 11:20 Respiratory Rate 18 03/23/24 11:20 Blood Pressure 105/78 03/23/24 11:20 Temperature 37.2 C 03/23/24 11:20 Pulse Rate 71 03/23/24 11:20 Respiratory Rate 18 03/23/24 11:20 Blood Pr
== END 2024-03-23 12:25 | disposition home or self-care (01) ==
PROVIDERS: Emergency Provider Nurse Practitioner; PCP Emergency Medicine
DX: T63.461A Toxic effect of venom of wasps, accidental (unintentional), initial encounter (principal); Z87.891 Personal history of nicotine dependence; G40.909 Epilepsy, unspecified, not intractable, without status epilepticus
CPT/HCPCS: 99213; G0463

== ENCOUNTER 2025-03-06 08:18 | Emergency (ER) | payer OTHER, SELFPAY ==
--- NOTE | ~2025-03-06 | XR_ITS ---
EXAMINATION: XR knee LT min 4V DATE: 03/06/2025 08:42 INDICATION: Medial left knee pain post fall TECHNIQUE: Anteroposterior, 2 oblique and crosstable lateral views of the left knee were obtained COMPARISON: None. FINDINGS: Alignment is normal. No fracture. Joint spaces appear normal on nonweightbearing imaging with no ost eophytosis. No joint effusion/layering lipohemarthrosis. Soft tissues are unremarkable. IMPRESSION: 1. Normal left knee radiographs. Reviewed, dictated and finalized at location B.
--- NOTE | 2025-03-06 08:21 | ED_ITS ---
HPI - Extremity Injury (Lower) General Chief Complaint: Extremity Injury, Lower Stated Complaint: Left Knee Pain Time Seen by Provider: 03/06/25 08:21 Source: patient Mode of arrival: ambulatory Limitations: no limitations History of Present Illness HPI Narrative: Jarret is a 29-year-old male patient presenting to the clinic today with complaints of left knee pain x 3 weeks. States he was going up a ladder was a b undle or shingles and slipped and the bundle shingles hit him and the medial left knee. He reports he has been wearing a knee brace. Woke up this morning with some numbness and felt like he may not be getting good blood flow and the left lower extremity. Some old bruising noted to the medial left knee. States that the pain is so bad that is just like when he cracked his school however he has not taken any Tylenol or Motrin for pain. States he does not take any medications additionally because he take seizure medicines. Has pain with full flexion and full extension of over the medial knee, crossing his legs left over right to the medial knee. Related Data Home Medications ?Medication ?Instructions ?Recorded ?Confirmed ?Last Taken ?Type levetiracetam 500 mg tablet 1,000 mg PO BID 02/07/21 03/23/24 Unknown History Allergies Allergy/AdvReac Type Severity Reaction Status Date / Time No Known Allergies Allergy Unknown Verified 03/06/25 08:22 Review of Systems Review of Systems: Pertinent positives per HPI. Patient denies any fever, chills, rash, headache, visual changes, dizziness, cough, shortness of breath, chest pain, palpitations, nausea, vomiting, diarrhea, constipation, abdominal pain, or any urinary issues. [facility] Past Medical History Medical History Pneumothorax ADHD Epilepsy Surgical History Surgical History Surgical history unknown Family History Family History Mother Family history non-contributory Social History Social History Smoking status: Former smoker Alcohol intake: current Alcohol use details: Occasional Substance use: never Living arrangements: with family Occupation/Education: student Gender identity (if verbalized by the patient): Male Comments At the time of my signature, I reviewed and agree with the nursing past medical, surgical, social, and family history. There is no relevant family history pertinent to the patient complaint. Exam Narrative: General: Well-developed, well nourished, in no apparent distress Head: Normocephalic, atraumatic. Cardio: Regular rate and rhythm, s1 and s2 normal, no murmur appreciated. Resp: Clear to auscultation bilaterally, no rhonchi, rales, wheezing or rubs. Musculoskeletal: No deformity, old bruising noted to the left medial knee, tenderness to palpation over the left medial knee, pain with valgus and varus testing over the left medial knee, pain with full extension and full flexion over the left medial knee, grossly normal range of motion, muscle strength strong and equal, peripheral pulse strong, no edema, no cyanosis, normal gait and station Course Course Emergency Course: Portions of this record may have been created with voice recognition software. Level of Care: Express Care Visit Vital Signs Vital signs: Vital Signs Temperature 36.9 C 03/06/25 08:28 Pulse Rate 69 03/06/25 08:28 Respiratory Rate 16 03/06/25 08:28 Blood Pressure 135/88 03/06/25 08:28 Pulse Oximetry 100 03/06/25 08:28 Oxygen Delivery Room Air 03/06/25 08:28 Temperature 36.9 C 03/06/25 08:28 Pulse Rate 69 03/06/25 08:28 Respiratory Rate 16 03/06/25 08:28 Blood Pressure 135/88 03/06/25 08:28 Pulse Oximetry 100 03/06/25 08:28 Oxygen Delivery Room Air 03/06/25 08:28 Vital signs reviewed MDM - Extremity Injury (Lower) MDM Narrative Medical decision making narrative: At the time of visit patient is resting comfortably on the exam table. Patient appears to be nontoxic. Diagnostics: X-ray of the left knee was performed and was negative for any sign of fracture or malalignment. Plan: I suspect patient has acute knee pain/knee contusion. Supportive measures were discussed with the patient and they voiced understanding discharge instructions and agrees to treatment plan. Return precautions reviewed Differential Diagnosis Differential diagnosis: Likely acute internal derangement of knee and other ( Tibia fracture, femur fracture, meniscus tear, knee sprain, knee contusion, soft tissue injury) Imaging Data Radiologist's impression: ITS Impressions Knee X-Ray 03/06/25 09:01 IMPRESSION: 1. Normal left knee radiographs. Discharge Plan Discharge Clinical Impression: Contusion of knee Qualifiers: Encounter type: initial encounter Laterality: left Qualified Code(s): S80.02XA - Contusion of left knee, initial encounter Acute knee pain Qualifiers: Laterality: left Qualified Code(s): M25.562 - Pain in left knee Patient Disposition: Home Condition: Stable Instructions: Antibiotic Form, Contusion in Adults (ED), Knee Pain (ED) Additional Instructions: X-rays negative for any sign of fracture or malalignment of the left knee There are no known contraindications between levetiracetam and Tylenol or l evetiracetam and ibuprofen Rest, ice, elevate, and wear ashtyn wrap as directed May wear hinged knee brace for support Tylenol/motrin for pain as discussed. May apply Aspercreme, blue emu, or lidocaine to the left knee Gradually bear weight No running or sports until healed. Follow up with your PCP if symptoms persist more than 1 week. Patient Language: Telugu Prescriptions: No Action levetiracetam 500 mg tablet 1,000 mg PO BID Follow-up/Referrals: Emanuel Heck MD [Primary Care Provider] - Time of Disposition: 09:06 Quality NIHSS Nursing Documentation ED NIHSS nursing documentation: reviewed/agree
[2025-03-06 08:28] VITALS: BP 135/88; PULSE 69; RESP 16; TEMP 36.9; O2SAT 100
== END 2025-03-06 09:18 | disposition home or self-care (01) ==
PROVIDERS: Emergency Provider Nurse Practitioner Family; PCP Emergency Medicine
DX: S80.02XA Contusion of left knee, initial encounter (principal); W22.8XXA Striking against or struck by other objects, initial encounter; M25.562 Pain in left knee; G40.909 Epilepsy, unspecified, not intractable, without status epilepticus; Z87.891 Personal history of nicotine dependence
CPT/HCPCS: 73564; 99213; G0463